=== PATIENT | male | born 1960 | race Hispanic/Latino ===

== ENCOUNTER 2018-08-09 12:17 | Emergency (ER) | payer BC ==
--- OUTSIDE RECORDS SUMMARY | 2018-08-09 12:21 | XMS REPORT | Clinical Summary ---
:1960 Author Organization [facility] Address [address] [place] [id number] Care Team Providers Name Role Phone Asked, No Pcp Primary Care Provider Unavailable Allergies No Known Allergies Medications Medication Sig Dispensed Refills Start Date End Date Status amLODIPine (NORVASC) Take 10 mg by 5 12/04/2016 Active 10 mg tablet mouth once daily. diclofenac (CATAFLAM) TAKE 1 TABLET BY 0 01/17/2017 Active 50 MG tablet MOUTH 3 TIMES A DAY AFTER MEALS docusate sodium Take by mouth 2 5 01/21/2017 Active (COLACE) 100 MG (two) times a day. capsule PROCTOSOL HC 2.5 % APPLY TWICE DAILY. 5 01/21/2017 Active rectal cream Active Problems Not on file Family History Medical History Relation Name Comments No Known Problems Father Hypertension Mother Relation Name Status Comments Father Alive Mother Alive Social History Tobacco Use Types Packs/Day Years Used Date Never Smoker Alcohol Use Drinks/Week oz/Week Comments Yes 6-10 Cans of beer 3.6 - 6.0 Sex Assigned at Date Recorded Not on file Job Start Date Occupation Industry Not on file Not on file Not on file Travel History Travel Start Travel End No recent travel history available. Last Filed Vital Signs Not on file Plan of Treatment Health Maintenance Due Date Last Done Comments COLON CANCER SCREENING 2012 SHINGRIX VACCINE (1 of 2) 2012 INFLUENZA VACCINE 04/04/2018 HEPATITIS B VACCINES Aged Out No longer eligible based on patient's age to complete this topic IPV VACCINES Aged Out No longer eligible based on patient's age to complete this topic MENINGOCOCCAL VACCINE Aged Out No longer eligible based on patient's age to complete this topic Results Not on fileafter 08/08/2017 Insurance Payer Benefit Plan / Group Subscriber ID Type Phone Address DAVID BILLINGSLEY xxxxxxxxxxxx PPO Advance Directives Patient has advance care planning documents on file. For more information, please contact:Fadi Naranjo[address] [place] [address]
--- NOTE | 2018-08-09 14:01 | RAD REPORT ---
EXAM DESCRIPTION: RAD - Chest Pa And Lat (2 Views) - 08/09/2018 1:23 pm CLINICAL HISTORY: Cough and congestion COMPARISON: February 2017 TECHNIQUE: PA and lateral views of the chest were obtained. FINDINGS: The lungs are clear of a peripheral consolidation, mass or failure finding. Peripheral int erstitial markings are not clearly different from comparison. Mild peribronchial thickening is seen s lightly more pronounced than seen in 2017. Findings would be consistent with a mild bronchitis or vi ral infiltrate. Trachea is midline. Heart size is normal and central vasculature is within normal limits. No pleural effusion or pneumo thorax seen. No acute bony finding noted. No aortic abnormality. IMPRESSION: Mild viral infiltrate or bronchitis pattern. No peripheral consolidation to suspect bact erial pneumonia.
--- NOTE | 2018-08-09 15:01 | ER ---
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 I have been feeling dizzy, BALDWIN, belly pain, cough, runny nose since monday. Transition of care: patient was not received from another setting of care. Onset of symptoms was August 09, 2018. Risk Assessment: Do you want to hurt yourself or someone else? Patient reports no desire to harm self or others. Initial Sepsis Screen: Does the patient meet any 2 criteria? No. Patient's initial sepsis screen is negative. Does the patient have a suspected source of infection? No. Patient's initial sepsis screen is negative. Care prior to arrival: None. 12:31 Method Of Arrival: Ambulatory la1 12:31 Acuity: PAOLO 3 la1 Historical: - Allergies: 12:31 No Known Allergies; la1 - PMHx: 12:31 None; la1 - Immunization history:: Adult Immunizations up to date. - Social history:: Smoking status: Patient/guardian denies using tobacco. - Ebola Screening: : No symptoms or risks identified at this time. Screenin:49 Abuse screen: Denies threats or abuse. Nutritional screening: No deficits noted. la1 Tuberculosis screening: No symptoms or risk factors identified. Fall Risk None identified. Assessment: 12:48 General: Appears in no apparent distress. Behavior is calm, cooperative. Pain:. Neuro: la1 Level of Consciousness is awake, alert, obeys commands, Oriented to person, place, time, situation. Cardiovascular: Heart tones S1 S2 present Capillary refill < 3 seconds Patient's skin is warm and dry. Respiratory: Airway is patent Trachea midline Respiratory effort is even, unlabored, Respiratory pattern is regular, symmetrical, Breath sounds are clear bilaterally. GI: No signs and/or symptoms were reported involving the gastrointestinal system. : No signs and/or symptoms were reported regarding the genitourinary system. Vital Signs: 12:32 BP 123 / 83; Pulse 56; Resp 18; Temp 97.4; Pulse Ox 98% on R/A; Weight 81.65 kg; la1 ED Course: 12:21 Patient arrived in ED. sb2 12:22 None, None is Private Physician. sb2 12:26 [facility]C [facility]. kb 12:26 Gian Hooker MD is Attending Physician. kb 12:32 Triage completed. la1 12:33 Arm band placed on left wrist. la1 12:49 Call light in reach. la1 13:06 Lay Robbins, RN is Primary Nurse. iw 13:17 Patient moved to radiology via wheelchair. jb2 13:21 X-ray completed. Portable x-ray completed in exam room. Patient tolerated procedure jb2 well. 13:22 Patient moved back from radiology. jb2 13:22 Chest Pa And Lat (2 Views) XRAY In Process Unspecified. EDMS 15:11 No provider procedures requiring assistance completed. Patient did not have IV access la1 during this emergency room visit. Administered Medications: No medications were administered Outcome: 15:01 Discharge ordered by MD. kb 15:11 Discharged to home ambulatory. la1 15:11 Condition: stable 15:11 Discharge instructions given to patient, Instructed on discharge instructions, follow up and referral plans. Demonstrated understanding of instructions, follow-up care. 15:11 Patient left the ED. la1 Signatures: Dispatcher [employer] EDMS Vikki Braden FNP-C FNP-Ckb Buechter, Jesse jb2 Lay Robbins, RN VU iw Dion Owen RN RN la1 Patricia Everett sb2
--- NOTE | 2018-08-09 15:01 | EDPHYS ---
Physician Documentation [facility] Name: Que Prieto Age: 57 yrs Sex: Male : 1960 Arrival Date: 08/09/2018 Time: 12:21 Bed 9 Private MD: None, None ED Physician Gian Hooker HPI: 08/09 15:06 This 57 yrs old Male presents to ER via Ambulatory with complaints of Flu kb Symptoms. 15:06 The patient or guardian reports cough, that is intermittent, described as moderate, kb with no sputum, flu symptoms, low-grade fever, myalgias. Onset: The symptoms/episode began/occurred 4 day(s) ago. Severity of symptoms: At their worst the symptoms were moderate, in the emergency department the symptoms are unchanged. Modifying factors: The symptoms are alleviated by nothing, the symptoms are aggravated by nothing. Associated signs and symptoms: Pertinent positives: rhinorrhea, Pertinent negatives: chest pain, diarrhea, ear ache, fever, nausea, sore throat, vomiting. The patient has not experienced similar symptoms in the past. The patient has not recently seen a physician. Pt reports cough, congestion, rhinorrhea, body aches for 4 days. Was seen by PCP and given zithromax, but doesn't feel any better. Concerned that he got pneumonia while he was taking care of his dad that had pneumonia. . Historical: - Allergies: 12:31 No Known Allergies; la1 - PMHx: 12:31 None; la1 - Immunization history:: Adult Immunizations up to date. - Social history:: Smoking status: Patient/guardian denies using tobacco. - Ebola Screening: : No symptoms or risks identified at this time. ROS: 15:06 Cardiovascular: Negative for chest pain, palpitations, and edema, Abdomen/GI: Negative kb for abdominal pain, nausea, vomiting, diarrhea, and constipation, Back: Negative for injury and pain, : Negative for injury, bleeding, discharge, and swelling, MS/Extremity: Negative for injury and deformity, Skin: Negative for injury, rash, and discoloration, Neuro: Negative for headache, weakness, numbness, tingling, and seizure. 15:06 Constitutional: Positive for body aches, chills, malaise. 15:06 ENT: Positive for rhinorrhea, sinus congestion. 15:06 Respiratory: Positive for cough, Negative for dyspnea on exertion, hemoptysis, orthopnea, pleurisy, shortness of breath, sputum production, wheezing. Exam: 15:12 Constitutional: This is a well developed, well nourished patient who is awake, alert, kb and in no acute distress. Head/Face: Normocephalic, atraumatic. ENT: Nares patent. No nasal discharge, no septal abnormalities noted. Tympanic membranes are normal and external auditory canals are clear. Oropharynx with no redness, swelling, or masses, exudates, or evidence of obstruction, uvula midline. Mucous membranes moist. Neck: Trachea midline, no thyromegaly or masses palpated, and no cervical lymphadenopathy. Supple, full range of motion without nuchal rigidity, or vertebral point tenderness. No Meningismus. Chest/axilla: Normal chest wall appearance and motion. Nontender with no deformity. No lesions are appreciated. Cardiovascular: Regular rate and rhythm with a normal S1 and S2. No gallops, murmurs, or rubs. Normal PMI, no JVD. No pulse deficits. Respiratory: Lungs have equal breath sounds bilaterally, clear to auscultation and percussion. No rales, rhonchi or wheezes noted. No increased work of breathing, no retractions or nasal flaring. Abdomen/GI: Soft, non-tender, with normal bowel sounds. No distension or tympany. No guarding or rebound. No evidence of tenderness throughout. Skin: Warm, dry with normal turgor. Normal color with no rashes, no lesions, and no evidence of cellulitis. MS/ Extremity: Pulses equal, no cyanosis. Neurovascular intact. Full, normal range of motion. Neuro: Awake and alert, GCS 15, oriented to person, place, time, and situation. Cranial nerves II-XII grossly intact. Motor strength 5/5 in all extremities. Sensory grossly intact. Cerebellar exam normal. Normal gait. Vital Signs: 12:32 BP 123 / 83; Pulse 56; Resp 18; Temp 97.4; Pulse Ox 98% on R/A; Weight 81.65 kg; la1 MDM: 12:53 Patient medically screened. kb 15:13 Data reviewed: vital signs, nurses notes. Data interpreted: Pulse oximetry: on room air kb is 98 %. Interpretation: normal. Counseling: I had a detailed discussion with the patient and/or guardian regarding: the historical points, exam findings, and any diagnostic results supporting the discharge/admit diagnosis, lab results, radiology results, the need for outpatient follow up, a family practitioner, to return to the emergency department if symptoms worsen or persist or if there are any questions or concerns that arise at home. 08/09 12:33 Order name: Strep; Complete Time: 13:00 la1 08/09 12:33 Order name: Flu; Complete Time: 13:07 la1 08/09 12:36 Order name: Chest Pa And Lat (2 Views) XRAY; Complete Time: 15:00 kb 08/09 13:03 Order name: Throat Culture EDME Administered Medications: No medications were administered Disposition: 18:00 Co-signature as Attending Physician, Gian Hooker MD. rn Disposition: 08/09/18 15:01 Discharged to Home. Impression: Bronchitis, not specified as acute or chronic. - Condition is Stable. - Discharge Instructions: Acute Bronchitis, [id number], Form - Return To Work. - Medication Reconciliation Form, Thank You Letter, Antibiotic Education, Prescription Opioid Use, Work release form, Family Work Release form. - Follow up: Emergency Department; When: As needed; Reason: Worsening of condition. Follow up: Private Physician; When: 2 - 3 days; Reason: Recheck today's complaints, Continuance of care, Re-evaluation by your physician. Signatures: Dispatcher [employer] [facility] Vikki Braden, PET NUTRITION SPECIALIST-C PET NUTRITION SPECIALIST-Ckb Gian Hooker MD MD rn Attema, Lee, RN RN la1 Corrections: (The following items were deleted from the chart) 14:43 14:43 Chest Pa And Lat (2 Views) ordered. [facility] 15:11 15:01 08/09/2018 15:01 Discharged to Home. Impression: Bronchitis, not specified as la1 acute or chronic. Condition is Stable. Forms are Medication Reconciliation Form, Thank You Letter, Antibiotic Education, Prescription Opioid Use. Follow up: Emergency Department; When: As needed; Reason: Worsening of condition. Follow up: Private Physician; When: 2 - 3 days; Reason: Recheck today's complaints, Continuance of care, Re-evaluation by your physician. kb
== END 2018-08-09 15:11 | disposition home or self-care (01) ==
LOC: ER 12:17
DX: J40 Bronchitis, not specified as acute or chronic (principal)
CPT/HCPCS: 71046; 87070; 87081; 87804; 99283

== ENCOUNTER 2018-08-17 12:40 | Observation (INO) | payer BC ==
--- OUTSIDE RECORDS SUMMARY | 2018-08-17 12:43 | XMS REPORT | Clinical Summary ---
:1960 Author Organization [facility] Address [address] [place] [id number] Care Team Providers Name Role Phone Asked, [...] Last Done Comments COLON CANCER SCREENING 2012 SHINGLES VACCINES (1 of 2) 2012 INFLUENZA VACCINE 04/04/2018 Results Not on fileafter 08/16/2017 Insurance Payer Benefit Plan / Group Subscriber ID Type Phone Address DAVID BILLINGSLEY xxxxxxxxxxxx PPO (Home) [place] [address] Advance Directives Patient has advance care planning documents on file. For more information, please contact:[facility] [place] [address]
--- NOTE | 2018-08-17 14:12 | RAD REPORT ---
EXAM DESCRIPTION: CT - Head Brain Wo Cont - 08/17/2018 2:05 pm CLINICAL HISTORY: Headache, weakness, dizziness COMPARISON: None. TECHNIQUE: Axial 5 mm thick images of the head were obtained without IV contrast. All CT scans are performed using dose optimization technique as appropriate and may include automated exposure control or mA/KV adjustment according to patient size. FINDINGS: No intracranial hemorrhage, mass, edema or shift of mid-line structures. No acute infarcti on changes seen. No abnormal extra-axial fluid collections. Ventricles are normal. Mastoid air cells and visualized portions of the paranasal sinuses are clear. No acute bony findings. IMPRESSION: Negative non-contrast CT head examination.
[2018-08-17 14:36] LABS: Absolute Lymphocytes (CBC) 1.3 K/uL (0.7-4.9); Absolute Monocytes 0.8 K/uL (0.1-1.3); Absolute Neutrophil 14.1 K/uL (1.8-8.0); Basophils % 0.3 % (0-1.3); Hematocrit 50.5 % (39.6-49.0); Lymphocytes % 7.8 % (15.3-44.8); MCH 32.6 pg (27.0-35.0); MCV 94.2 fL (80-100); MPV 9.3 fL (7.6-11.3); Monocytes % 4.7 % (3.3-12.3); RBC Red Blood Cell Count 5.36 M/uL (4.33-5.43)
[2018-08-17 14:38] LABS: Protime INR 1.13
[2018-08-17] MEDS ORDERED: NA CHLORIDE 0.9% 1,000 ML ONE (14:52)
--- NOTE | 2018-08-17 15:03 | RAD REPORT ---
EXAM DESCRIPTION: RAD - Chest Single View - 08/17/2018 2:46 pm CLINICAL HISTORY: Bronchitis, cough, shortness of breath COMPARISON: August 09 TECHNIQUE: AP portable chest image was obtained 1411 hours . FINDINGS: Lungs are clear. Heart and vasculature are normal. No measurable pleural effusion and no p neumothorax. No acute bony abnormality seen. No acute aortic findings suspected. IMPRESSION: No acute cardiopulmonary process. No significant change from comparison.
--- NOTE | 2018-08-17 15:07 | RAD REPORT ---
EXAM DESCRIPTION: - CP - 08/17/2018 2:45 pm CLINICAL HISTORY: Dizziness, syncope COMPARISON: None. TECHNIQUE: Real-time sonographic evaluation of both carotid systems was performed. Medrano scale and Do ppler interrogation were performed with waveform tracing bilaterally. FINDINGS: Normal high resistance waveforms are noted in both external carotid arteries. The common c arotid arteries and internal carotid arteries show normal low resistance waveforms. No significant plaque formation is seen. Peak systolic and end diastolic velocity values and the ICA/ CCA ratios are in the non-hemodynamically significant range. Antegrade flow seen in both vertebral arteries. Velocity values and ratios were recorded and are retained in the patient's imaging records. IMPRESSION: No significant atherosclerotic changes noted. No evidence of a hemodynamically significant stenosis.
[2018-08-17 15:10] LABS: ALT/SGPT 54 U/L (12-78); AST/SGOT 21 U/L (15-37); Albumin 3.9 g/dL (3.4-5.0); Alkaline Phosphatase 84 U/L (45-117); BUN Blood Urea Nitrogen 18 mg/dL (7-18); Bicarbonate 28 mmol/L (21-32); Bilirubin Direct 0.2 mg/dL (0-0.2); Bilirubin Total 0.6 mg/dL (0.2-1.0); Glucose Level 116 mg/dL (74-106); Lipase 99 U/L (73-393); Magnesium 2.1 mg/dL (1.8-2.4); NT PRO-BNP 20 pg/mL (<125); Potassium 3.9 mmol/L (3.5-5.1); Protein, Total 7.9 g/dL (6.4-8.2); Sodium Level 136 mmol/L (136-145); Troponin (Emerg Dept Use Only) < 0.02 ng/mL (0.0-0.045)
[2018-08-17 15:12] LABS: Blood Morphology Comment NOT SEEN (NOT SEEN); Platelet Estimate ADEQ; Urine White Blood Cell Casts OK
[2018-08-17 16:10] LABS: Urine Blood NEGATIVE (NEG); Urine Glucose NEGATIVE (NEG); Urine Protein NEGATIVE (NEG)
[2018-08-17] MEDS ORDERED: CEFTRIAXONE/SWI 1gm 2 GM/20 ML SYR ONE (16:20)
--- NOTE | 2018-08-17 17:03 | RAD REPORT ---
EXAM DESCRIPTION: MRI - Brain Wo Cont - 08/17/2018 4:42 pm CLINICAL HISTORY: Dizziness COMPARISON: August 17, [address] TECHNIQUE: Axial, sagittal, and coronal magnetic resonance images of the brain were obtained. FINDINGS: No abnormal signal is present within the brain. Diffusion-weighted/ADC mapping does not reveal evidence of acute infarction. The ventricles are normal caliber. An extra-axial fluid collection is not noted. Fluid within the sinuses/mastoids is not seen IMPRESSION: Unremarkable unenhanced brain MRI
[2018-08-17] MEDS ORDERED: LIDOCAINE 1% MPF 30 ML VIAL ONE (18:24)
[2018-08-17] MEDS ORDERED: AZITHROMYCIN 500 MG/250 ML BAG ONE (18:44)
--- NOTE | 2018-08-17 18:46 | EDPHYS ---
Physician Documentation [facility] Name: Que Frazier Age: 57 yrs Sex: Male : 1960 Arrival Date: 08/17/2018 Time: 12:44 Bed 27 Private MD: None, None ED Physician Morris Velasco HPI: 08/17 18:40 This 57 yrs old Male presents to ER via Ambulatory with complaints of freddy Headache, Dizziness, Vomiting. 18:40 The patient complains of pain to the forehead, left frontal area, left side of the back freddy of head, left occipital area, left base of the skull, right side of the back of head, right occipital area and right base of the skull. The patient describes the headache as aching, constant. Onset: The symptoms/episode began/occurred 2 week(s) ago. 18:41 The patient or guardian reports cough. Onset: The symptoms/episode began/occurred 1 freddy week(s) ago. Modifying factors: The symptoms are alleviated by nothing. the symptoms are aggravated by nothing. Associated signs and symptoms: Pertinent positives: dizziness, fever, syncope weakness. Severity of symptoms: At its worst the pain was moderate, in the emergency department the pain is unchanged. Headache History: Denies prior headaches. Historical: - Allergies: 12:55 No Known Allergies; sv - PMHx: 12:55 Hypertension; sv - PSHx: 12:55 None; sv - Immunization history:: Flu vaccine is not up to date. - Social history:: Smoking status: Patient/guardian denies using tobacco. - Ebola Screening: : No symptoms or risks identified at this time. - Family history:: not pertinent. ROS: 18:41 Constitutional: Negative for fever, chills, and weight loss, Eyes: Negative for injury, freddy pain, redness, and discharge, ENT: Negative for injury, pain, and discharge, Neck: Negative for injury, pain, and swelling, Cardiovascular: Negative for chest pain, palpitations, and edema, Abdomen/GI: Negative for abdominal pain, nausea, vomiting, diarrhea, and constipation, Back: Negative for injury and pain, : Negative for injury, bleeding, discharge, and swelling, MS/Extremity: Negative for injury and deformity, Skin: Negative for injury, rash, and discoloration, Psych: Negative for depression, anxiety, suicide ideation, homicidal ideation, and hallucinations, Allergy/Immunology: Negative for hives, rash, and allergies, Endocrine: Negative for neck swelling, polydipsia, polyuria, polyphagia, and marked weight changes, Hematologic/Lymphatic: Negative for swollen nodes, abnormal bleeding, and unusual bruising. 18:41 Neck: Positive for pain at rest, Negative for pain with movement, stiffness, swollen nodes. 18:41 Respiratory: Positive for cough. 18:41 Abdomen/GI: Positive for nausea. 18:41 Back: 18:41 MS/extremity: Negative for acute changes. 18:41 Neuro: Positive for dizziness, headache, Negative for altered mental status. Exam: 18:41 Constitutional: This is a well developed, well nourished patient who is awake, alert, freddy and in no acute distress. Head/Face: Normocephalic, atraumatic. Eyes: Pupils equal round and reactive to light, extra-ocular motions intact. Lids and lashes normal. Conjunctiva and sclera are non-icteric and not injected. Cornea within normal limits. Periorbital areas with no swelling, redness, or edema. ENT: Nares patent. No nasal discharge, no septal abnormalities noted. Tympanic membranes are normal and external auditory canals are clear. Oropharynx with no redness, swelling, or masses, exudates, or evidence of obstruction, uvula midline. Mucous membranes moist. Neck: Trachea midline, no thyromegaly or masses palpated, and no cervical lymphadenopathy. Supple, full range of motion without nuchal rigidity, or vertebral point tenderness. No Meningismus. Chest/axilla: Normal chest wall appearance and motion. Nontender with no deformity. No lesions are appreciated. Cardiovascular: Regular rate and rhythm with a normal S1 and S2. No gallops, murmurs, or rubs. Normal PMI, no JVD. No pulse deficits. Respiratory: Lungs have equal breath sounds bilaterally, clear to auscultation and percussion. No rales, rhonchi or wheezes noted. No increased work of breathing, no retractions or nasal flaring. Abdomen/GI: Soft, non-tender, with normal bowel sounds. No distension or tympany. No guarding or rebound. No evidence of tenderness throughout. Back: No spinal tenderness. No costovertebral tenderness. Full range of motion. Male : Normal genitalia with no discharge or lesions. Skin: Warm, dry with normal turgor. Normal color with no rashes, no lesions, and no evidence of cellulitis. MS/ Extremity: Pulses equal, no cyanosis. Neurovascular intact. Full, normal range of motion. Neuro: Awake and alert, GCS 15, oriented to person, place, time, and situation. Cranial nerves II-XII grossly intact. Motor strength 5/5 in all extremities. Sensory grossly intact. Cerebellar exam normal. Normal gait. Psych: Awake, alert, with orientation to person, place and time. Behavior, mood, and affect are within normal limits. 18:47 Neck: ROM/movement: is normal, no acute changes, limited range of motion, is not freddy appreciated, that is mild. Vital Signs: 12:55 BP 152 / 99; Pulse 61; Resp 18; Temp 97.7; Pulse Ox 100% ; Weight 81.65 kg; Height 5 sv ft. 2 in. (157.48 cm); Pain 9/10; 15:02 BP 157 / 99; Pulse 61; Resp 19; Pulse Ox 96% on R/A; kr2 16:06 BP 154 / 83; Pulse 61; Resp 18; Pulse Ox 97% on R/A; mg2 17:18 BP 146 / 90; Pulse 58; Resp 17; Pulse Ox 97% on R/A; kr2 20:44 BP 101 / 85; Pulse 58; Resp 18; Pulse Ox 95% on R/A; Pain 0/10; mg2 23:17 BP 142 / 78; Pulse 64; Resp 17; Pulse Ox 99% on R/A; kr2 12:55 Body Mass Index 32.92 (81.65 kg, 157.48 cm) Procedures: 18:33 Lumbar Puncture: Patient placed in left lateral decubitus position. Prepped with cp Betadine. Draped using sterile technique. Collected 4 ml's of clear fluid. Sample sent to lab. Puncture site dressed with band aid, Patient tolerated well. MDM: 13:22 Patient medically screened. [facility] 18:44 Data reviewed: vital signs, nurses notes, lab test result(s), EKG, radiologic studies, [facility] CT scan, doppler, MRI, plain films. 08/17 13:48 Order name: Basic Metabolic Panel; Complete Time: 15:48 [facility] 08/17 13:48 Order name: CBC with Diff; Complete Time: 15:48 [facility] 08/17 13:48 Order name: LFT's; Complete Time: 15:48 [facility] 08/17 13:48 Order name: Magnesium; Complete Time: 15:48 [facility] 08/17 13:48 Order name: NT PRO-BNP; Complete Time: 15:48 [facility] 08/17 13:48 Order name: PT-INR; Complete Time: 15:48 [facility] 08/17 13:48 Order name: Troponin (emerg Dept Use Only); Complete Time: 15:48 [facility] 08/17 13:48 Order name: Lipase; Complete Time: 15:48 [facility] 08/17 13:48 Order name: Urine Culture [facility] 08/17 14:38 Order name: CBC Smear Scan; Complete Time: 15:48 [facility] 08/17 14:53 Order name: Urine Dipstick--Ancillary (enter results); Complete Time: 16:22 08/17 16:08 Order name: Blood Culture Adult (2) [facility] 08/17 16:08 Order name: Spinal Fluid Profile; Complete Time: 21:19 [facility] 08/17 16:08 Order name: Procalcitonin; Complete Time: 18:38 [facility] 08/17 13:48 Order name: XRAY Chest (1 view); Complete Time: 15:48 [facility] 08/17 13:48 Order name: EKG; Complete Time: 13:49 [facility] 08/17 13:48 Order name: US Carotid Artery Bilateral; Complete Time: 15:48 [facility] 08/17 13:48 Order name: CT Head Brain wo Cont; Complete Time: 15:48 [facility] 08/17 16:09 Order name: Blood Culture [facility] 08/17 16:30 Order name: Brain Wo Cont; Complete Time: 17:07 [facility] 08/17 16:50 Order name: Troponin (emerg Dept Use Only); Complete Time: 18:38 [facility] 08/17 18:46 Order name: Flu; Complete Time: 19:38 [facility] 08/17 19:39 Order name: CSF Culture [facility] 08/17 19:39 Order name: Body Fluid Cell Count; Complete Time: 21:19 [facility] 08/17 13:48 Order name: Cardiac monitoring; Complete Time: 14:28 [facility] 08/17 13:48 Order name: EKG - Nurse/Tech; Complete Time: 14:28 [facility] 08/17 13:48 Order name: IV Saline Lock; Complete Time: 14:28 [facility] 08/17 13:48 Order name: Labs collected and sent; Complete Time: 14:28 [facility] 08/17 13:48 Order name: O2 Per Protocol; Complete Time: 14:28 [facility] 08/17 13:48 Order name: O2 Sat Monitoring; Complete Time: 14:28 [facility] 08/17 13:48 Order name: Urine Dipstick-Ancillary (obtain specimen); Complete Time: 14:51 [facility] 08/17 16:08 Order name: Lumbar Puncture Setup; Complete Time: 16:51 [facility] 08/17 16:50 Order name: Repeat Cardiac Enzymes at: 500pm; Complete Time: 17:16 [facility] Administered Medications: 14:50 Drug: NS 0.9% 500 ml Route: IV; Rate: bolus; Site: left antecubital; kr2 15:45 Follow up: Response: No adverse reaction; IV Status: Completed infusion kr2 15:45 Drug: NS 0.9% 1000 ml Route: IV; Rate: 125 ml/hr; Site: right antecubital; kr2 23:34 Follow up: Response: No adverse reaction; IV Status: Infusion continued upon admission kr2 16:14 Drug: NS 0.9% 500 ml Route: IV; Rate: bolus; Site: right antecubital; kr2 17:30 Follow up: Response: No adverse reaction; IV Status: Completed infusion kr2 17:16 Drug: Rocephin - (cefTRIAXone) 2 grams Route: IVPB; Infused Over: 30 mins; Site: left kr2 antecubital; 18:00 Follow up: Response: No adverse reaction; IV Status: Completed infusion kr2 18:43 Drug: Zithromax 500 mg Route: IVPB; Infused Over: 1 hrs; Site: left antecubital; kr2 20:00 Follow up: Response: No adverse reaction; IV Status: Completed infusion kr2 Disposition: 08/17/18 18:46 Hospitalization ordered by Lee Moran for Observation. Preliminary diagnosis are Cough, Headache, Elevated white blood cell count, Syncope and collapse - near. - Bed requested for Telemetry/MedSurg (observation). - Status is Observation. kr2 - Condition is Fair. - Problem is new. - Symptoms have improved. UTI on Admission? No Signatures: Dispatcher [employer] EDMS Swapnil, Charito, RN RN kl Arlen, Gem, RN Morris Caba MD MD cha Page, Corey, PA PA cp Reaves, Karey, RN RN kr2 Corrections: (The following items were deleted from the chart) 16:30 16:09 MR STROKE PROTOCOL+MRI.RAD.BRZ ordered. EDKS EDKS 18:47 18:46 Hospitalization Ordered by Lee Moran MD for Observation. Preliminary freddy diagnosis is Cough; Headache; Elevated white blood cell count. Bed requested for Telemetry/MedSurg (observation). Status is Observation. Condition is Fair. Problem is new. Symptoms have improved. UTI on Admission? No. freddy 23:04 18:47 08/17/2018 18:46 Hospitalization Ordered by Lee Moran MD for Observation. Preliminary diagnosis is Cough; Headache; Elevated white blood cell count; Syncope and collapse - near. Bed requested for Telemetry/MedSurg (observation). Status is Observation. Condition is Fair. Problem is new. Symptoms have improved. UTI on Admission? No. freddy 08/18 00:01 08/17 23:04 08/17/2018 18:46 Hospitalization Ordered by Lee Moran MD for kr2 Observation. Preliminary diagnosis is Cough; Headache; Elevated white blood cell count; Syncope and collapse - near. Bed requested for Telemetry/MedSurg (observation). Status is Observation. Condition is Fair. Problem is new. Symptoms have improved. UTI on Admission? No. kl
--- NOTE | 2018-08-17 18:46 | ER ---
Nurse's Notes [facility] Name: Que Frazier Age: 57 yrs Sex: Male : 1960 Arrival Date: 08/17/2018 Time: 12:44 Bed 27 Private MD: None, None Diagnosis: Cough;Headache;Elevated white blood cell count;Syncope and collapse-near Presentation: 08/17 12:54 Presenting complaint: Patient states: dx with bronchitis last week, c/o occipital/neck sv pain, dizziness, syncope, n/v x a couple of months. Transition of care: patient was not received from another setting of care. Onset of symptoms is unknown. Care prior to arrival: None. 12:54 Method Of Arrival: Ambulatory sv 12:54 Acuity: PAOLO 3 sv 20:43 Risk Assessment: Do you want to hurt yourself or someone else? Patient reports no mg2 desire to harm self or others. Initial Sepsis Screen: Does the patient meet any 2 criteria? No. Patient's initial sepsis screen is negative. Does the patient have a suspected source of infection? No. Patient's initial sepsis screen is negative. Triage Assessment: 12:54 Headache History: The patient has had previous headaches. General: Appears in no sv apparent distress. uncomfortable, Behavior is calm, cooperative, appropriate for age. Pain: Complains of pain in base of the skull and back of neck Pain currently is 9 out of 10 on a pain scale. Neuro: Level of Consciousness is awake, alert, obeys commands, Oriented to person, place, time, situation, Moves all extremities. Full function Gait is steady, Reports dizziness, a syncopal episode. Respiratory: Respiratory effort is even, unlabored, Respiratory pattern is regular, symmetrical. GI: Reports nausea, vomiting. 20:44 Pain: Pain began 3 weeks ago. mg2 20:45 Pain: Also complains of no other associated symptoms. mg2 Historical: - Allergies: 12:55 No Known Allergies; sv - PMHx: 12:55 Hypertension; sv - PSHx: 12:55 None; sv - Immunization history:: Flu vaccine is not up to date. - Social history:: Smoking status: Patient/guardian denies using tobacco. - Ebola Screening: : No symptoms or risks identified at this time. - Family history:: not pertinent. Screenin:43 Abuse screen: Denies threats or abuse. Denies injuries from another. Nutritional mg2 screening: No deficits noted. Tuberculosis screening: No symptoms or risk factors identified. Fall Risk IV access (20 points). Assessment: 13:15 General: Appears in no apparent distress. uncomfortable, well groomed, well developed, kr2 well nourished, Behavior is calm, cooperative, appropriate for age. Pain: Complains of pain in back of neck Pain radiates to base of the skull Pain currently is 4 out of 10 on a pain scale. Quality of pain is described as aching, Is continuous, Alleviated by nothing. Neuro: Level of Consciousness is awake, alert, obeys commands, Oriented to person, place, time, situation, Appropriate for age Physical Therapy Director are equal bilaterally Moves all extremities. Full function Gait is steady, Speech is normal, Facial symmetry appears normal, Pupils are PERRLA, Intact. Cardiovascular: Capillary refill < 3 seconds in bilateral fingers Patient's skin is warm and dry. Respiratory: Airway is patent Respiratory effort is even, unlabored, Respiratory pattern is regular, symmetrical. GI: Abdomen is round non-distended, Bowel sounds present X 4 quads. Reports nausea, vomiting. EENT: Oral mucosa is moist. Derm: Skin is intact, is healthy with good turgor, Skin is pink, warm \T\ dry. Musculoskeletal: Circulation, motion, and sensation intact. 14:15 Reassessment: Patient appears in no apparent distress at this time. Patient and/or kr2 family updated on plan of care and expected duration. Pain level reassessed. Patient is alert, oriented x 3, equal unlabored respirations, skin warm/dry/pink. Patient states feeling better. 15:01 Reassessment: Patient appears in no apparent distress at this time. Patient and/or kr2 family updated on plan of care and expected duration. Pain level reassessed. Patient is alert, oriented x 3, equal unlabored respirations, skin warm/dry/pink. 16:00 Reassessment: Patient appears in no apparent distress at this time. Patient and/or kr2 family updated on plan of care and expected duration. Pain level reassessed. Patient is alert, oriented x 3, equal unlabored respirations, skin warm/dry/pink. 17:17 Reassessment: Patient appears in no apparent distress at this time. Patient and/or kr2 family updated on plan of care and expected duration. Pain level reassessed. Patient is alert, oriented x 3, equal unlabored respirations, skin warm/dry/pink. Consent form signed for lumbar puncture. 18:20 Reassessment: Patient appears in no apparent distress at this time. Patient and/or kr2 family updated on plan of care and expected duration. Pain level reassessed. Patient is alert, oriented x 3, equal unlabored respirations, skin warm/dry/pink. 19:30 Reassessment: Patient appears in no apparent distress at this time. Patient and/or kr2 family updated on plan of care and expected duration. Pain level reassessed. Patient is alert, oriented x 3, equal unlabored respirations, skin warm/dry/pink. Patient denies pain at this time. 20:30 Reassessment: Patient appears in no apparent distress at this time. Patient and/or kr2 family updated on plan of care and expected duration. Pain level reassessed. Patient is alert, oriented x 3, equal unlabored respirations, skin warm/dry/pink. Patient denies pain at this time. 21:30 Reassessment: Patient appears in no apparent distress at this time. Patient and/or kr2 family updated on plan of care and expected duration. Pain level reassessed. Patient is alert, oriented x 3, equal unlabored respirations, skin warm/dry/pink. Patient denies pain at this time. 22:39 Reassessment: Patient appears in no apparent distress at this time. Patient and/or kr2 family updated on plan of care and expected duration. Pain level reassessed. Patient is alert, oriented x 3, equal unlabored respirations, skin warm/dry/pink. Patient denies pain at this time. Patient states feeling better. Vital Signs: 12:55 BP 152 / 99; Pulse 61; Resp 18; Temp 97.7; Pulse Ox 100% ; Weight 81.65 kg; Height 5 sv ft. 2 in. (157.48 cm); Pain 9/10; 15:02 BP 157 / 99; Pulse 61; Resp 19; Pulse Ox 96% on R/A; kr2 16:06 BP 154 / 83; Pulse 61; Resp 18; Pulse Ox 97% on R/A; mg2 17:18 BP 146 / 90; Pulse 58; Resp 17; Pulse Ox 97% on R/A; kr2 20:44 BP 101 / 85; Pulse 58; Resp 18; Pulse Ox 95% on R/A; Pain 0/10; mg2 23:17 BP 142 / 78; Pulse 64; Resp 17; Pulse Ox 99% on R/A; kr2 12:55 Body Mass Index 32.92 (81.65 kg, 157.48 cm) sv ED Course: 12:44 Patient arrived in ED. sb2 12:44 None, None is Private Physician. sb2 12:55 Triage completed. sv 13:22 Morris Velasco MD is Attending Physician. freddy 14:02 EKG done, by ammonia technician. reviewed by Morris Velasco MD. sm3 14:04 CT completed. Patient tolerated procedure well. Patient moved to CT via wheelchair. sj Patient moved back from CT. 14:06 CT Head Brain wo Cont In Process Unspecified. EDMS 14:23 Initial lab(s) drawn, by me, sent to lab. Inserted saline lock: 20 gauge in left tm3 antecubital area, using aseptic technique. 14:26 Salena Oreilly, VU is Primary Nurse. kr2 14:45 US Carotid Artery Bilateral In Process Unspecified. EDMS 14:46 Ultrasound completed. Patient tolerated well. aa4 14:46 XRAY Chest (1 view) In Process Unspecified. EDMS 16:29 Patient moved to MRI via wheelchair. ka 16:43 Brain Wo Cont In Process Unspecified. EDMS 16:52 MRI completed. Patient tolerated well. Patient moved back from MRI. ka 18:45 Lee Moran MD is Hospitalizing Provider. freddy 18:45 Assist provider with lumbar puncture: Set up LP tray. Performed by boone Caceres CSF is mg2 clear. Puncture site dressed with band aid, Procedure was successful. Patient tolerated well. 20:19 Patient has correct armband on for positive identification. panel monitor on. Pulse mg2 ox on. NIBP on. 20:43 Arm band placed on. mg2 23:21 Patient admitted, IV remains in place. kr2 Administered Medications: 14:50 Drug: NS 0.9% 500 ml Route: IV; Rate: bolus; Site: left antecubital; kr2 15:45 Follow up: Response: No adverse reaction; IV Status: Completed infusion kr2 15:45 Drug: NS 0.9% 1000 ml Route: IV; Rate: 125 ml/hr; Site: right antecubital; kr2 23:34 Follow up: Response: No adverse reaction; IV Status: Infusion continued upon admission kr2 16:14 Drug: NS 0.9% 500 ml Route: IV; Rate: bolus; Site: right antecubital; kr2 17:30 Follow up: Response: No adverse reaction; IV Status: Completed infusion kr2 17:16 Drug: Rocephin - (cefTRIAXone) 2 grams Route: IVPB; Infused Over: 30 mins; Site: left kr2 antecubital; 18:00 Follow up: Response: No adverse reaction; IV Status: Completed infusion kr2 18:43 Drug: Zithromax 500 mg Route: IVPB; Infused Over: 1 hrs; Site: left antecubital; kr2 20:00 Follow up: Response: No adverse reaction; IV Status: Completed infusion kr2 Outcome: 18:46 Decision to Hospitalize by Provider. freddy 23:17 Admitted to Tele accompanied by tech, via wheelchair. kr2 23:17 Condition: stable 08/18 00:01 Patient left the ED. kr2 Signatures: Dispatcher [employer] EDAntonio Malhotra tm3 Gem Mckinley, RN Morris Caba MD MD cha Jones, Susan sj Frazier, Amanda aa4 Caro Sihn Karey RN RN kr2 Patricia Everett2 Lv Baez RN RN mg2 Kimberly Davison 3 Corrections: (The following items were deleted from the chart) 08/17 23:35 14:15 Reassessment: Patient appears in no apparent distress at this time. Patient kr2 and/or family updated on plan of care and expected duration. Pain level reassessed. Patient is alert, oriented x 3, equal unlabored respirations, skin warm/dry/pink. Patient denies pain at this time. Patient states feeling better. kr2
[2018-08-17 18:54] LABS: CSF Glucose 70 mg/dL (40-70)
[2018-08-17 19:51] LABS: Appearance CLEAR (CLEAR); Body Fluid Source CSF; Color of fluid Colorless (COLORLESS); Fluid Total Volume 8 ml
[2018-08-17 19:52] LABS: Body Fluid WBC 2 /mm^3
[2018-08-17 19:53] LABS: Appearance CLEAR (CLEAR); Body Fluid Source CSF; Body Fluid WBC 1 /mm^3; Color of fluid Colorless (COLORLESS)
--- NOTE | 2018-08-17 22:10 | EKG ---
Test Date: 2018-08-17 Test Time: 13:59:53 Lining Setter: SOPHIA MEASUREMENT RESULTS: Intervals: Rate: 55 WV: 178 QRSD: 88 QT: 416 QTc: 397 [place]: P: 35 WV: 178 QRS: 38 T: -5 INTERPRETIVE STATEMENTS: Sinus bradycardia Nonspecific T wave abnormality Abnormal ECG Compared to ECG 03/03/2017 14:38:10 T-wave abnormality now present ST (T wave) deviation no longer present Electronically Signed On 08-17-18 22:09:36 EM PHYSICIAN by Horacio Mcclure
--- NOTE | 2018-08-17 22:58 | P.HP ---
Certification for Inpatient Patient admitted to: Observation With expected LOS: <2 Midnights Practitioner: I am a practitioner with admitting privileges, knowledge of patient current condition, hospital course, and medical plan of care. Services: Services provided to patient in accordance with Admission requirements found in Title 42 Section 412.3 of the Code of Federal Regulations Patient History Date of Service: 08/17/18 Reason for admission: dizziness, acute bronchitis, headache History of Present Illness: Mr Frazier is a 57 years old male with history of HTN, who start about 5 days ago with dizziness, productive cough, and headache. He came to ED, was diagnosed with acute bronchitis. The patient was not improving despite symptomatic medication. His PCP refer him to ED again for further evaluation. He denied fever or chills. He states that headache and dizziness are worse now. Lab work remarkable for leukocytosis, elevated procalcitonin. He has had an extensive work up in ED, including LP which was normal, CT and MRI of the brain , both studies roported no acute abnormalities. Carotid US shows no significant stenosis. CXR no acute infiltrate. No fever in ED. Home medications list reviewed: Yes - Past Medical/Surgical History -: HTN Past Surgical History: Reviewed- Non-Contributory - Family History Family History: Reviewed- Non-Contributory - Social History Smoking Status: Former smoker Alcohol use: Yes CD- Drugs: No Place of Residence: Home Review of Systems 10-point ROS is otherwise unremarkable Physical Examination - Physical Exam General: Alert, In no apparent distress HEENT: Atraumatic, PERRLA, Mucous membr. moist/pink, EOMI, Sclerae nonicteric Neck: Supple, 2+ carotid pulse no bruit, No LAD, Without JVD or thyroid abnormality Respiratory: Clear to auscultation bilaterally, Normal air movement Cardiovascular: Regular rate/rhythm, Normal S1 S2 Gastrointestinal: Normal bowel sounds, No tenderness Musculoskeletal: No tenderness Integumentary: No rashes Neurological: Normal gait, Normal speech, Normal strength at 5/5 x4 extr, Normal tone, Normal affect Lymphatics: No axilla or inguinal lymphadenopathy - Studies Laboratory Data (last 24 hrs) 08/17/18 14:20: PT 13.3 H, INR 1.13 08/17/18 14:20: WBC 16.2 H, Hgb 17.5, Hct 50.5 H, Plt Count 258 08/17/18 14:20: Sodium 136, Potassium 3.9, BUN 18, Creatinine 1.00, Glucose 116 H, Magnesium 2.1, Total Bilirubin 0.6, AST 21, ALT 54, Alkaline Phosphatase 84, Lipase 99 Microbiology Data (last 24 hrs): 08/17/18 18:55 Nasopharnyx Influenza Type A Antigen Screen - Final 08/17/18 18:55 Nasopharnyx Influenza Type B Antigen Screen - Final Assessment and Plan - Problems (Diagnosis) (1) Headache Current Visit: Yes Status: Acute Qualifiers: Headache type: unspecified Headache chronicity pattern: acute headache Intractability: intractable Qualified Code(s): R51 - Headache (2) Dizziness Current Visit: Yes Status: Acute (3) Acute bronchitis Current Visit: Yes Status: Acute Qualifiers: Bronchitis organism: unspecified organism Qualified Code(s): J20.9 - Acute bronchitis, unspecified - Plan The patient will be admitted to the hospital due to persistent headache associated with dizziness with normal work up. Consider Migraines as differential diagnosis. He has leukocytosis and elevated procalcitonin, no obvious source of infection. Will give empiric Rocephin and Azithromycin for possible bronchitis. Continue IV fluids, will order Imitrex for his headache. - Advance Directives Does patient have a Living Will: No Does patient have a Durable POA for Healthcare: No - Code Status/Comfort Care Code Status Assessed: Yes Code Status: Full Code
[2018-08-18] MEDS ORDERED: SUMATRIPTAN SUCCI 50 MG TAB PO PRN (00:17)
[2018-08-18 00:42] VITALS: BMI 24.2
[2018-08-18] MEDS: ACETAMINOPHEN 500 MG TAB PO PRN ×3 (01:03→09:33)
[2018-08-18] MEDS: ONDANSETRON 4 MG/2 ML VIAL IV PRN ×4 (01:03→20:37)
[2018-08-18] MEDS: NA CHLORIDE 0.9% 1,000 ML IV SCH ×5 (01:03→23:49)
[2018-08-18 06:38] LABS: Potassium 3.8 mmol/L (3.5-5.1)
[2018-08-18 06:59] LABS: Absolute Monocytes 1.1 K/uL (0.1-1.3); Absolute Neutrophil 7.8 K/uL (1.8-8.0); Basophils % 0.2 % (0-1.3); Eosinophils % 0.2 % (0-4.4); Hematocrit 45.4 % (39.6-49.0); Lymphocytes % 18.3 % (15.3-44.8); MCH 32.6 pg (27.0-35.0); MCV 94.3 fL (80-100); MPV 9.9 fL (7.6-11.3); Monocytes % 9.7 % (3.3-12.3); RBC Red Blood Cell Count 4.81 M/uL (4.33-5.43)
[2018-08-18] MEDS: CEFTRIAXONE/SWI 1gm 1 GM/10 ML SYR IVP SCH (08:49)
[2018-08-18] MEDS: ENOXAPARIN 40 MG/0.4 ML SQ SCH (08:49)
[2018-08-18] MEDS ORDERED: CEFTRIAXONE 1 GM/NS 50 ML 1 GM/50 ML BAG IV SCH (09:00)
[2018-08-18] MEDS ORDERED: POTASSIUM 25 MEQ EFFERV TAB PO ONE (09:00)
[2018-08-18] MEDS: AZITHROMYCIN IV 500 MG in NA CHLORIDE 0.9% 250 ML IVPB SCH (09:32)
[2018-08-18] MEDS ORDERED: INFLUENZA VACCINE (for 3y+) 0.5 ML DOSE IMVAC ONE (10:00)
[2018-08-18] MEDS ORDERED: hydroCHLOROthiazide 12.5 MG CAP PO SCH (11:00)
[2018-08-18] MEDS ORDERED: LISINOPRIL 10 MG TAB PO SCH (11:00)
--- NOTE | 2018-08-18 17:55 | PN ---
Date of Progress Note: 08/18/2018 History: The patient seen and examined. Chart reviewed and case discussed with RN. The patient com plaining of some dizziness with the room spinning about with changes in his head position. Otherwise , his nausea and vomiting have improved with medications. Physical Examination: Vital Signs: Temperature 97.9, heart rate 52, blood pressure 114/71, respirations 20, O2 96% on room air. General: Awake, alert, oriented in 3, in mild distress. Ill-appearing male. CV: S1, S2. Regular rate and rhythm. Peripheral pulses present. Respiratory: Moving air well bilaterally. No wheezing or stridor. Gastrointestinal: Abdomen is soft, nontender, nondistended. Positive bowel sounds. Extremities: No clubbing, cyanosis, or edema. Neuro: Cranial nerves 2-12 intact grossly. No focal neurological deficit. Speech is normal. Medications: List reviewed. Laboratory Data: Sodium 140, potassium 3.8, chloride 110, CO2 26, BUN 21, creatinine 0.9, glucose 93 , calcium 8.2. Troponin less than 0.02 x2. Procalcitonin 1.06. WBC 11, H and H 15.7 and 25.4, plat elets 233, neutrophils 71%. CSF negative. UA is also negative. Influenza screen is negative. Bloo d culture is pending. CSF Gram stain and culture are pending. However, no WBCs or organisms are see n at this time. Urine culture no growth to date. Assessment And Plan: A 57-year-old male with: 1.Headache, acute, intractable. Meningitis ruled out. CSF negative. Gram stain does not show any WBCs, likely related to his vertigo. 2.Dizziness, most likely causes benign paroxysmal positional vertigo. We will have physical therapy apply the Prema maneuver. Continue antiemetics and meclizine. 3.Acute bronchitis. White blood cell count has improved. We will continue with IV antibiotics. Th e patient was recently diagnosed with bronchitis and was on outpatient p.o. antibiotics. 4.Essential hypertension. Resume home medications as appropriate. 5.Gastrointestinal and deep vein thrombosis prophylaxes addressed. Plan: Likely discharge in the next 24 hours once culture results return and the patient is able to a mbulate and symptoms improve. The patient has had extensive workup including MRI of the brain, head CT, carotid artery ultrasound, which have all been negative. Stroke has been ruled out. SA/MODL Voice ID: [id number] Report ID: [id number]
[2018-08-19 06:30] LABS: Absolute Lymphocytes (CBC) 2.5 K/uL (0.7-4.9); Absolute Monocytes 0.7 K/uL (0.1-1.3); Absolute Neutrophil 2.2 K/uL (1.8-8.0); Basophils % 0.2 % (0-1.3); Eosinophils % 1.6 % (0-4.4); Hematocrit 45.3 % (39.6-49.0); Lymphocytes % 46.2 % (15.3-44.8); MCH 32.7 pg (27.0-35.0); MCV 94.4 fL (80-100); MPV 9.5 fL (7.6-11.3); Monocytes % 12.4 % (3.3-12.3)
[2018-08-19 08:21] LABS: Blood Morphology Comment NOT SEEN (NOT SEEN); Platelet Estimate ADEQ; Urine White Blood Cell Casts OK
[2018-08-19 08:24] VITALS: BP 92/53; TEMP 97.8
[2018-08-19] MEDS ORDERED: LISINOPRIL PO SCH (09:00)
[2018-08-19] MEDS ORDERED: [UNRECOGNIZED DRUG - OTHER] PO SCH (09:00)
[2018-08-19] MEDS ORDERED: HYDROCHLOROTHIAZIDE PO SCH (09:00)
[2018-08-19] MEDS: ENOXAPARIN 40 MG/0.4 ML SQ SCH (09:00)
[2018-08-19] MEDS: AZITHROMYCIN IV 500 MG in NA CHLORIDE 0.9% 250 ML IVPB SCH (09:10)
[2018-08-19] MEDS: CEFTRIAXONE/SWI 1gm 1 GM/10 ML SYR IVP SCH (09:11)
[2018-08-19 14:11] VITALS: O2SAT 96
--- NOTE | 2018-08-20 12:45 | DS ---
Date of Discharge: 08/19/2018 Admitting Diagnoses: 1.Headache. 2.Dizziness. 3.Acute bronchitis. Discharge Diagnoses: 1.Acute headache, intractable. Meningitis ruled out. Likely migraine. 2.Dizziness, possibly benign paroxysmal positional vertigo, improved with Prema maneuver. 3.Acute bronchitis, improving. 4.Essential hypertension. Hospital Course: The patient is a 57-year-old male with past medical history of hypertension, comes in with dizziness, acute bronchitis, and headache. He was recently in the ER, diagnosed with acute b ronchitis, however, his symptoms had worsened. The patient returned to the ER for his symptoms. His workup revealed elevated white count of 16,000. Lumbar puncture was done to rule out meningitis. H is CSF fluid analysis was not concerning for any bacterial meningitis-type picture. His Gram stain d id not show any WBCs or organisms. CSF culture showed no growth. Blood cultures also remained negat kristal. His urine culture also did not show any growth. His influenza screen was negative. His white count improved with treatment. He was placed on IV antibiotics for his bronchitis. MRI of the brain was done, which was negative for any acute cerebrovascular accident. Head CT scan also did not show any bleed. Carotid artery ultrasound was done, which did not show any significant atherosclerotic c hanges. No hemodynamically significant stenosis was seen. Chest x-ray was also clear, and there was no difference from comparison study recently. The patient overall did well with active treatment wi th antibiotics and IV fluids. He was started on migraine medications, which improved his symptoms. He has also had the Prema maneuver performed by the physical therapist, which also improved his sympt oms. He was no longer having any nausea, dizziness. He was able to ambulate without any difficulty, without any further syncopal episodes or dizziness. No falls. This was likely thought to be due to BPPV and migraine headache. The patient was then stable for discharge. He was sent home in a [facility] condition. Activity: As tolerated. Medications: As per medication reconciliation list. Followup: Follow up with primary care physician in 2 to 3 days. Return to ER for worsening conditio n. Diet: Heart healthy. Finish off a course of antibiotics for bronchitis. Physical Examination: General: Awake, alert, oriented, no acute distress. CV: S1, S2. No murmurs. Respiratory: Moving air well bilaterally. No wheezing. Gastrointestinal: Abdomen is soft, nontender, nondistended. Positive bowel sounds. Extremities: No clubbing, cyanosis, or edema. Neurologic: Nonfocal. SA/MODL Voice ID: [id number] Report ID: [id number]
== END 2018-08-19 11:32 | disposition home or self-care (01) ==
LOC: ER 12:40 → ERHOLD 23:11 → 4TH 23:23
PROVIDERS: ADMIT Internal Medicine; ATTEND Internal Medicine
PROC: 009U3ZX Drainage of Spinal Canal, Percutaneous Approach, Diagnostic (ICD-10-PCS; principal; 2018-08-17)
DX: R51 Headache (principal); R42 Dizziness and giddiness; J20.9 Acute bronchitis, unspecified; I10 Essential (primary) hypertension; Z23 Encounter for immunization
CPT/HCPCS: 36415; 62270; 70450; 70551; 71045; 80048; 80076; 81003; 82945; 83690; 83735; 83880; 84145; 84157; 84484; 85025; 85610; 87040; 87070; 87086; 87088; 87804; 89050; 93005; 93880; 96361; 96365; 96367; 97110; 99285; G0008; G0378; J0456; J0696; J1650; J2405; J7030; Q2035